=== PATIENT | female | born 1955 ===

== ENCOUNTER 2021-10-26 05:45 | Day surgery (SDC) | payer OTHER ==
[~2021-10-26 05:45] MED LIST: CLONAZEPAM2 M1 PO; ELIQUIS2.5 MG PO; SIMVASTATIN5 MG PO; SINEMET 10-1001 EACH PO
== END 2021-10-26 14:50 | disposition home or self-care (01) ==
LOC: CIR.AMB 05:45
PROVIDERS: ATTEND Orthopaedic Surgery Hand Surgery
DX: S63.592A Other specified sprain of left wrist, initial encounter (principal); Z20.822 Contact with and (suspected) exposure to COVID-19